=== PATIENT | female | born 1935 | race Caucasian/White ===

== ENCOUNTER 2024-01-05 10:20 | Inpatient (IN) | payer MEDICARE, OTHER ==
[2024-01-05] MEDS: ALBUTEROL SO4 2.5/IPRATROPIUM 0.5 INH SOL 3 ML VIAL.NEB. NEB SCH ×2 (10:26→20:28)
[2024-01-05] MEDS ORDERED: methylPREDNISolone NA SUCC 125 MG/2 ML VIAL ONE (10:29)
[2024-01-05] MEDS: methylPREDNISolone NA SUCC 125 MG/2 ML VIAL IVPUSH ONE (10:29)
[2024-01-05] MEDS ORDERED: ALBUTEROL SO4 2.5/IPRATROPIUM 0.5 INH SOL 3 ML VIAL.NEB. NEB ONE ×2 (10:29→17:28)
[2024-01-05 11:54] LABS: VENOUS O2 SATURATION 25.6 % (70-80); VENOUS PCO2 43.8 mmHg (38-52); VENOUS PH 7.365 (7.310-7.410)
[2024-01-05 11:57] LABS: HEMATOCRIT 34.8 % (32.4-45.2); HEMOGLOBIN 10.5 GM/dL (10.7-15.3); MCH 23.2 pg (25.7-33.7); MCHC 30.3 g/dl (32.0-36.0); MEAN CELL VOLUME 76.4 fl (80-96); MEAN PLT VOLUME 8.6 fl (7.5-11.1); PLATELET COUNT 382 10^3/uL (134-434); RBC 4.55 M/mm3 (3.60-5.2); RDW 24.4 % (11.6-15.6); WHITE BLOOD COUNT 9.1 K/mm3 (4.0-10.0)
[2024-01-05 12:04] LABS: INR 1.31 (0.83-1.09); PROTHROMBIN TIME (PATIENT) 14.9 SEC (9.7-13.0)
[2024-01-05 12:07] LABS: ACTIVATED PTT 23.7 SECONDS (25.2-36.5)
[2024-01-05] MEDS ORDERED: ACETAMINOPHEN INJECTION 100 ML ONE (12:27)
[2024-01-05 12:29] LABS: POTASSIUM 4.1 mmol/L (3.5-5.1)
[2024-01-05 12:32] LABS: CALCIUM 9.8 mg/dL (8.5-10.1)
[2024-01-05] MEDS: ACETAMINOPHEN 1000 MG/100 ML BAG IVPB ONE (12:32)
[2024-01-05 12:33] LABS: ALBUMIN 3.3 g/dl (3.4-5.0); BLOOD UREA NITROGEN 11.3 mg/dL (7-18)
[2024-01-05 12:36] LABS: CREATININE 1.1 mg/dL (0.55-1.3)
[2024-01-05 12:38] LABS: BILIRUBIN,TOTAL 1.2 mg/dL (0.2-1)
[2024-01-05] MEDS ORDERED: CEFTRIAXONE 1 G/50 ML PREMIX 50 ML IVPB ONE (13:08)
[2024-01-05] MEDS ORDERED: AZITHROMYCIN IVPB 500 MG/250 ML BAG IVPB ONE (13:09)
[2024-01-05] MEDS: AZITHROMYCIN IVPB 500 MG in DEXTROSE 5%-WATER - 250 ML IVPB ONE (13:10)
[2024-01-05 13:16] LABS: EPI CELLS 10 /uL (0-25.1); HYALINE CASTS 1 /uL (0-3.1); PH,URINE 5.5 (5.0-8.0); URINE APPEARANCE CLEAR; URINE BACTERIA 2 /uL (0-1359); URINE BILIRUBIN NEGATIVE (NEGATIVE); URINE COLOR DK YELLOW; URINE GLUCOSE (UA) NEGATIVE (NEGATIVE); URINE KETONE TRACE (NEGATIVE); URINE LEUK ESTERASE NEGATIVE (NEGATIVE); URINE NITRITE NEGATIVE (NEGATIVE); URINE PROTEIN 1+ (NEGATIVE); URINE RBC 10 /uL (0-23.9); URINE UROBILINOGEN 0.2 mg/dL (0.2-1.0); URINE WBC 4 /uL (0-25.8)
[2024-01-05 13:28] LABS: ANISOCYTOSIS 2+; MACROCYTOSIS 0
[2024-01-05 13:28] LABS: LACTIC ACID 2.2 mmol/L (0.4-2.0)
[2024-01-05] MEDS ORDERED: ASPIRIN 81 MG CHEWABLE TABLETS ONE (13:42)
[2024-01-05] MEDS: ASPIRIN 81 MG CHEWABLE TABLETS PO ONE (13:43)
[2024-01-05] MEDS ORDERED: FUROSEMIDE 40 MG/4 ML INJECTABLE VIAL ONE (15:05)
[2024-01-05] MEDS: FUROSEMIDE 40 MG/4 ML INJECTABLE VIAL IVPUSH ONE (15:06)
[2024-01-05] MEDS ORDERED: CLOPIDOGREL BISULFATE 300 MG TABLET ONE (16:39)
[2024-01-05] MEDS: CLOPIDOGREL BISULFATE 300 MG TABLET PO ONE (16:39)
[2024-01-05] MEDS ORDERED: ENOXAPARIN NA (PORCINE) 60 MG/0.6 ML DISP.SYRIN SQ SCH ×2 (17:00→20:00)
[2024-01-05] MEDS ORDERED: ALBUTEROL SO4 HFA INHALER IH PRN (17:18)
[2024-01-05] MEDS: ENOXAPARIN NA (PORCINE) 60 MG/0.6 ML DISP.SYRIN SQ SCH (17:25)
[2024-01-05] MEDS ORDERED: methylPREDNISolone NA SUCC 40 MG/1 ML VIAL ONE (17:26)
[2024-01-05] MEDS: methylPREDNISolone NA SUCC 40 MG/1 ML VIAL IVPUSH SCH (17:26)
[2024-01-05] MEDS: ALBUTEROL SO4 2.5/IPRATROPIUM 0.5 INH SOL 3 ML VIAL.NEB. NEB ONE (17:28)
[2024-01-05 17:30] LABS: ARTERIAL BLD GAS O2 SATURATION 95.2 % (95-98); ARTERIAL BLOOD GAS BASE EXCESS -1.9 mmol/L (-2-2); ARTERIAL BLOOD GAS PO2 75.7 mmHg (80-100); ARTERIAL BLOOD GAS pH 7.398 (7.350-7.450)
[2024-01-05 19:46] VITALS: BMI 23.0
[2024-01-06] MEDS: FUROSEMIDE 40 MG/4 ML INJECTABLE VIAL IVPUSH SCH (05:14)
[2024-01-06 06:39] LABS: ARTERIAL BLOOD GAS BASE EXCESS -0.2 mmol/L (-2-2); ARTERIAL BLOOD GAS PO2 90.5 mmHg (80-100); ARTERIAL BLOOD GAS pH 7.414 (7.350-7.450)
[2024-01-06 06:40] LABS: ALLENS TEST POSITIVE
[2024-01-06 06:41] LABS: VENT MODE S/T; VENT RATE 14
[2024-01-06 06:44] LABS: POTASSIUM 4.7 mmol/L (3.5-5.1)
[2024-01-06 07:04] LABS: ALBUMIN 2.7 g/dl (3.4-5.0); BLOOD UREA NITROGEN 14.2 mg/dL (7-18); CALCIUM 9.3 mg/dL (8.5-10.1); MAGNESIUM 2.3 mg/dL (1.8-2.4)
[2024-01-06 07:05] LABS: HEMATOCRIT 35.2 % (32.4-45.2); HEMOGLOBIN 10.7 GM/dL (10.7-15.3); MCH 23.5 pg (25.7-33.7); MCHC 30.4 g/dl (32.0-36.0); MEAN CELL VOLUME 77.3 fl (80-96); MEAN PLT VOLUME 8.8 fl (7.5-11.1); PLATELET COUNT 341 10^3/uL (134-434); RBC 4.55 M/mm3 (3.60-5.2); RDW 24.2 % (11.6-15.6)
[2024-01-06 07:07] LABS: BILIRUBIN,TOTAL 0.6 mg/dL (0.2-1); CREATININE 0.8 mg/dL (0.55-1.3); PHOSPHOROUS 3.8 mg/dL (2.5-4.9)
[2024-01-06 07:08] LABS: TOT PROT 7.1 g/dl (6.4-8.2)
[2024-01-06 08:54] LABS: ANISOCYTOSIS 1+; MACROCYTOSIS 0
[2024-01-06] MEDS: ASPIRIN COATED 81 MG TABLET.EC PO SCH (10:31)
[2024-01-06] MEDS: CLOPIDOGREL BISULFATE 75 MG TABLET (FP) PO SCH (10:31)
[2024-01-06] MEDS: AZITHROMYCIN IVPB 250 MG in DEXTROSE 5%-WATER - 250 ML IVPB SCH (10:31)
[2024-01-06] MEDS: methylPREDNISolone NA SUCC 40 MG/1 ML VIAL IVPUSH SCH (11:14)
[2024-01-07 06:26] LABS: HEMATOCRIT 33.6 % (32.4-45.2); MCH 22.7 pg (25.7-33.7); MCHC 29.7 g/dl (32.0-36.0); MEAN CELL VOLUME 76.7 fl (80-96); MEAN PLT VOLUME 8.9 fl (7.5-11.1); PLATELET COUNT 383 10^3/uL (134-434); RBC 4.38 M/mm3 (3.60-5.2); RDW 24.6 % (11.6-15.6); WHITE BLOOD COUNT 12.7 K/mm3 (4.0-10.0)
[2024-01-07 06:53] LABS: POTASSIUM 4.2 mmol/L (3.5-5.1)
[2024-01-07 06:58] LABS: CALCIUM 9.1 mg/dL (8.5-10.1)
[2024-01-07 06:59] LABS: BLOOD UREA NITROGEN 24.6 mg/dL (7-18); MAGNESIUM 2.2 mg/dL (1.8-2.4)
[2024-01-07 07:02] LABS: CREATININE 0.8 mg/dL (0.55-1.3); PHOSPHOROUS 2.9 mg/dL (2.5-4.9)
[2024-01-07] MEDS: FUROSEMIDE 40 MG/4 ML INJECTABLE VIAL IVPUSH SCH (10:20)
[2024-01-07] MEDS: CEFTRIAXONE 1 G/50 ML PREMIX 50 ML IVPB SCH (12:30)
[2024-01-07] MEDS: MELATONIN 1 MG TABLET PO SCH (21:13)
[2024-01-07] MEDS: LATANOPROST 0.005% OPHTH SOLN 2.5ML BOTTLE OU SCH (21:38)
[2024-01-08 07:02] LABS: HEMATOCRIT 33.3 % (32.4-45.2); HEMOGLOBIN 9.8 GM/dL (10.7-15.3); MCH 22.9 pg (25.7-33.7); MCHC 29.3 g/dl (32.0-36.0); MEAN PLT VOLUME 9.1 fl (7.5-11.1); PLATELET COUNT 416 10^3/uL (134-434); RBC 4.27 M/mm3 (3.60-5.2); RDW 23.7 % (11.6-15.6); WHITE BLOOD COUNT 11.6 K/mm3 (4.0-10.0)
[2024-01-08 07:22] LABS: BLOOD UREA NITROGEN 20.8 mg/dL (7-18); CALCIUM 9.4 mg/dL (8.5-10.1)
[2024-01-08 07:23] LABS: ALBUMIN 2.6 g/dl (3.4-5.0)
[2024-01-08 07:24] LABS: MAGNESIUM 2.4 mg/dL (1.8-2.4)
[2024-01-08 07:26] LABS: CREATININE 0.8 mg/dL (0.55-1.3); PHOSPHOROUS 3.3 mg/dL (2.5-4.9)
[2024-01-08 07:27] LABS: BILIRUBIN,TOTAL 0.3 mg/dL (0.2-1); TOT PROT 6.9 g/dl (6.4-8.2)
[2024-01-08] MEDS: ENOXAPARIN NA (PORCINE) 40 MG/0.4 ML DISP.SYRIN SQ SCH (09:46)
[2024-01-09 07:11] LABS: HEMATOCRIT 33.6 % (32.4-45.2); HEMOGLOBIN 9.9 GM/dL (10.7-15.3); MCH 22.9 pg (25.7-33.7); MCHC 29.5 g/dl (32.0-36.0); MEAN CELL VOLUME 77.6 fl (80-96); MEAN PLT VOLUME 8.9 fl (7.5-11.1); PLATELET COUNT 465 10^3/uL (134-434); RBC 4.34 M/mm3 (3.60-5.2); RDW 23.9 % (11.6-15.6); WHITE BLOOD COUNT 11.3 K/mm3 (4.0-10.0)
[2024-01-09 07:25] LABS: POTASSIUM 4.9 mmol/L (3.5-5.1)
[2024-01-09 07:27] LABS: ALBUMIN 2.5 g/dl (3.4-5.0); CALCIUM 9.4 mg/dL (8.5-10.1)
[2024-01-09 07:28] LABS: BLOOD UREA NITROGEN 18.6 mg/dL (7-18); MAGNESIUM 2.4 mg/dL (1.8-2.4)
[2024-01-09 07:31] LABS: CREATININE 0.8 mg/dL (0.55-1.3); PHOSPHOROUS 2.3 mg/dL (2.5-4.9)
[2024-01-09 07:32] LABS: BILIRUBIN,TOTAL 0.4 mg/dL (0.2-1); TOT PROT 6.7 g/dl (6.4-8.2)
[2024-01-09] MEDS: methylPREDNISolone NA SUCC 40 MG/1 ML VIAL IVPUSH SCH (09:31)
[2024-01-09] MEDS: AZITHROMYCIN IVPB 500 MG/250 ML BAG IVPB SCH ×2 (09:52→10:21)
[2024-01-09] MEDS: BUDESONIDE/FORMETEROL FUMARATE 160/4.5 mcg INHALER IH SCH (21:13)
[2024-01-10] MEDS: guaiFENesin 200 MG/10 ML 10 ML UNIT-DOSE CUPS PO PRN (06:40)
[2024-01-10 07:15] LABS: HEMATOCRIT 34.4 % (32.4-45.2); HEMOGLOBIN 10.2 GM/dL (10.7-15.3); MCH 22.6 pg (25.7-33.7); MCHC 29.6 g/dl (32.0-36.0); MEAN CELL VOLUME 76.3 fl (80-96); MEAN PLT VOLUME 8.5 fl (7.5-11.1); PLATELET COUNT 464 10^3/uL (134-434); RDW 24.4 % (11.6-15.6); WHITE BLOOD COUNT 10.2 K/mm3 (4.0-10.0)
[2024-01-10 07:35] LABS: ALBUMIN 2.5 g/dl (3.4-5.0); CALCIUM 9.5 mg/dL (8.5-10.1)
[2024-01-10 07:36] LABS: MAGNESIUM 2.4 mg/dL (1.8-2.4)
[2024-01-10 07:39] LABS: CREATININE 0.7 mg/dL (0.55-1.3)
[2024-01-10 07:40] LABS: BILIRUBIN,TOTAL 0.4 mg/dL (0.2-1); TOT PROT 6.5 g/dl (6.4-8.2)
[2024-01-10 09:14] LABS: PH,URINE 6.5 (5.0-8.0); URINE APPEARANCE Clear; URINE BILIRUBIN Negative (NEGATIVE); URINE COLOR Yellow; URINE GLUCOSE (UA) Negative (NEGATIVE); URINE KETONE Negative (NEGATIVE); URINE LEUK ESTERASE Negative (NEGATIVE); URINE NITRITE Negative (NEGATIVE); URINE PROTEIN Negative (NEGATIVE); URINE UROBILINOGEN 0.2 mg/dL (0.2-1.0)
[2024-01-10 09:50] LABS: ANISOCYTOSIS 2+; MACROCYTOSIS 0; TARGET CELLS 1+
[2024-01-10] MEDS: BENZOCAINE/MENTH/CETYLPYRD CL 1 EACH LOZENGE MM PRN (21:32)
[2024-01-11 06:36] LABS: HEMATOCRIT 32.5 % (32.4-45.2); HEMOGLOBIN 9.8 GM/dL (10.7-15.3); MCH 22.9 pg (25.7-33.7); MCHC 30.2 g/dl (32.0-36.0); MEAN PLT VOLUME 8.2 fl (7.5-11.1); PLATELET COUNT 478 10^3/uL (134-434); RBC 4.28 M/mm3 (3.60-5.2); RDW 23.8 % (11.6-15.6); WHITE BLOOD COUNT 11.2 K/mm3 (4.0-10.0)
[2024-01-11 07:04] LABS: POTASSIUM 4.5 mmol/L (3.5-5.1)
[2024-01-11 07:08] LABS: ALBUMIN 2.4 g/dl (3.4-5.0); CALCIUM 9.8 mg/dL (8.5-10.1)
[2024-01-11 07:09] LABS: BLOOD UREA NITROGEN 15.4 mg/dL (7-18); MAGNESIUM 2.2 mg/dL (1.8-2.4)
[2024-01-11 07:11] LABS: PHOSPHOROUS 3.6 mg/dL (2.5-4.9)
[2024-01-11 07:12] LABS: CREATININE 0.7 mg/dL (0.55-1.3)
[2024-01-11 07:13] LABS: BILIRUBIN,TOTAL 0.5 mg/dL (0.2-1); TOT PROT 6.2 g/dl (6.4-8.2)
[2024-01-11] MEDS: predniSONE 20 MG TABLET (UD) PO SCH (10:15)
[2024-01-11] MEDS: FLUTICASONE/UMECLIDIN/VILANTER(200-62.5-25 TRELEGY ELLIPTA) INAHLER IH SCH (11:13)
[2024-01-12 22:17] VITALS: BP 100/61; PULSE 94; RESP 18; TEMP 98
== END 2024-01-12 21:30 | DRG 189 ==
LOC: JER 10:20 → JERBED 15:23 → J2W 18:43
PROVIDERS: ADMIT Student in an Organized Health Care Education/Training Program; ATTEND Internal Medicine
DX: J96.21 Acute and chronic respiratory failure with hypoxia (principal); I50.43 Acute on chronic combined systolic (congestive) and diastolic (congestive) heart failure; J44.1 Chronic obstructive pulmonary disease with (acute) exacerbation; J44.0 Chronic obstructive pulmonary disease with (acute) lower respiratory infection; E04.1 Nontoxic single thyroid nodule; I27.20 Pulmonary hypertension, unspecified; R33.9 Retention of urine, unspecified
CPT/HCPCS: 0241U-QW; 36415; 36600; 71045-TC-FY; 71275-TC; 76604; 80048; 80053; 80061; 81003; 82550; 82803; 82962; 83036; 83605; 83735; 83880; 84100; 84436; 84443; 84484; 85025; 85027; 85610; 85730; 87040; 87070; 87086; 87205; 87481; 87899; 93005; 93010; 93306-TC; 93308; 93970-TC; 94640; 94660; 97116-GP; 97161-GP; 99285-25; J0131; Q9967